=== PATIENT | female | born 1970 | race Caucasian/White ===

== ENCOUNTER 2017-02-18 11:01 | Emergency (ER) | payer OTHER ==
[~2017-02-18] VITALS: Ht 172.7 cm; Wt 75.0 kg
[2017-02-18] MEDS ORDERED: SODIUM CHLORIDE 0.9% 1,000 ML IV ONE (11:17)
[2017-02-18] MEDS ORDERED: ONDANSETRON 2MG/ML, 2ML IVPush ONE (11:30)
[2017-02-18] MEDS ORDERED: MORPHINE SULFATE 4 MG/ML, 1ML IVPush PRN (11:30)
[2017-02-18] MEDS ORDERED: LORazepam 2 MG/ML, 1ML IVPush ONE (11:30)
[2017-02-18] MEDS ORDERED: LORazepam 2 MG/ML, 1ML ONE (11:34)
[2017-02-18 11:52] VITALS: BP 118/78
[2017-02-18 11:54] LABS: ASPARTATE AMINO TRANSFERASE 22 U/L (15-37); BLOOD UREA NITROGEN 12 mg/dL (7-18)
[2017-02-18 11:59] LABS: IS PT STATUS REG ER OR PRE ER? YES
== END 2017-02-18 13:02 | disposition home or self-care (01) ==
LOC: ED 12:56
DX: G43.909 Migraine, unspecified, not intractable, without status migrainosus (principal); E78.00 Pure hypercholesterolemia, unspecified; Z90.710 Acquired absence of both cervix and uterus
CPT/HCPCS: 36415; 71010; 80053; 82962; 84436; 84443; 84484; 85025; 85610; 85730; 93005; 96361; 96374; 99285; J2060; J7030